=== PATIENT | female | born 1995 | race American Indian/Alaskan Native ===

== ENCOUNTER 2017-05-06 16:26 | Emergency (ER) | payer MEDICAID ==
--- NOTE | 2017-05-06 17:08 | OBHP ---
Datetime: 05/06/2017 17:01 IP Admit Plan: Discharge home Admit Comment, IP Provider: @ 35+ wks reprots decreased movements since around 2am. pt denies any lof, vb, ctx. Pt states she started feeling movements after being hooked u leonel monitor. 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: hx of STD PMH anemia (did not go t ohematolgy appointmetn because she says she lost her inrsance) PSH: deneis FHX: non tontribuotyr MEDS: pnv NKDA A/P P0 @ 35+ wks with maternal and reassuring well being -d/ chome -information for [facility] ginve - labor preucations ginve - kick count Pelvic Type - PN: Adequate Extremities - PN: Normal Abdomen - PN: Normal Back - PN: Normal Breast - PN: Normal Lungs - PN: Normal Heart - PN: Normal Thyroid - PN: Not Done Neurologic - PN: Normal HEENT - PN: Normal General - PN: Normal FHR - Baseline A Provider: 155 Vital Signs Provider: Reviewed; Within Normal Limits IP Chief Complaint: Decreased movement NICHD Variability Prov Fetus A: Moderate 6-25bpm NICHD Accel Fetus A IP Provider: 15X15 FHR Category Provider Fetus A: Category I NICHD Decel Fetus A IP Provider: None Dilatation, Provider: 0 Effacement, Provider: 0 Station, Provider: -3 Genitourinary Exam: Normal DTRs - PN: Normal
--- NOTE | 2017-05-06 17:09 | OBDCSUM ---
Datetime: 05/06/2017 17:07 Discharged to, Provider: Home Follow up at, Provider: clinic Disch Instr Activity: Normal activity Disch Instr Diet: Regular Discharge Instructions, Provider: Routine instructions given Discharge Time: 05/06/2017 17:07 Follow up in weeks, Provider: call tomorrow Disch Referrals: None Contraception discussed, Prov: No Discharge Comment, Provider: kick counts labor precautions can call [facility] for continuation of care Discharge Diagnosis Prov Other: decreased movements
[2017-05-06 22:15] VITALS: BP 125/71; PULSE 95; RESP 16; TEMP 98; O2SAT 98
== END 2017-05-06 18:13 | disposition home or self-care (01) ==
LOC: C.EROB 16:26
DX: O36.8130 Decreased fetal movements, third trimester, not applicable or unspecified (principal); Z3A.35 35 weeks gestation of pregnancy

== ENCOUNTER 2017-05-24 10:54 | Inpatient (IN) | payer MEDICAID ==
[2017-05-24 12:08] VITALS: BMI 41.8
[2017-05-24] MEDS ORDERED: Lactated Ringer's 1,000 ML IV SCH (12:15)
[2017-05-24] MEDS ORDERED: Penicillin G 5 Million Unit Vial IVPB ONE ×2 (13:00→17:40)
[2017-05-24 13:33] LABS: BASO % 0.4 % (0.0-2.0); EOS % 0.1 % (0.0-4.0); HEMATOCRIT 27.3 % (34.0-47.0); LYMPH # 1.4 K/uL (1.0-4.3); LYMPH % 10.5 % (20.0-40.0); MEAN CELL VOLUME 74.3 fL (81.0-99.0); MEAN CORPUSCULAR HEMOGLOBIN 23.7 pg (27.0-31.0); MEAN CORPUSCULAR HGB CONC 31.9 g/dL (33.0-37.0); MONO # 0.9 K/uL (0.0-0.8); MONO % 6.5 % (0.0-10.0); NRBC % 0.1 % (0.0-2.0); RED CELL DISTRIBUTION WIDTH 18.7 % (11.5-14.5); WHITE BLOOD COUNT 13.2 K/uL (4.8-10.8)
[2017-05-24 13:54] LABS: RBC URINE 1 /hpf (0-3); URINE BACTERIA FEW (<OCC); URINE BILIRUBIN NEGATIVE (NEGATIVE); URINE BLOOD NEGATIVE (NEGATIVE); URINE COLOR Yellow (YELLOW); URINE GLUCOSE (UA) NORMAL (Normal); URINE KETONE NEGATIVE (NEGATIVE); URINE LEUKOCYTE ESTERASE TRACE Leu/uL (Negative); URINE PROTEIN NEGATIVE (NEGATIVE); URINE UROBILINOGEN NORMAL mg/dL (0.2-1.0); WBC URINE 4 /hpf (0-5)
[2017-05-24 13:59] LABS: ALB/GLOB RATIO 1.1 (1.0-2.1); ALKALINE PHOSPHATASE 178 U/L (38-126); ALT/SGPT 24 U/L (9-52); AST/SGOT 20 U/L (14-36); BILIRUBIN,TOTAL 0.9 mg/dL (0.2-1.3); BLOOD UREA NITROGEN 8 mg/dL (7-17); CALCIUM 9.1 mg/dl (8.6-10.4); CARBON DIOXIDE 22 mmol/L (22-30); CHLORIDE 104 mmol/L (98-107); GFR AFRICAN-AMERICAN > 60; GLUCOSE,RANDOM 64 mg/dL (65-105); SODIUM 137 mmol/L (132-148); TOTAL PROTEIN 6.3 g/dL (6.3-8.3)
[2017-05-24] MEDS ORDERED: Penicillin G Potassium 2.5 MU in Dextrose 5% In Water 50 ML IV SCH (17:00)
[2017-05-24] MEDS ORDERED: Bupivacaine HCl 0.25% PF (10 ml) Inj ONE (19:13)
[2017-05-24] MEDS: Lactated Ringer's 1,000 ML IV SCH (20:04)
--- NOTE | 2017-05-24 23:24 | OBHP ---
Datetime: 05/24/2017 14:31 Admit Comment, IP Provider: 21 yo at 40w ANALI 05/24/2017 as per 5weeks 6days ultrasound with L MP of 08/16/16. Patient reports 5/10 contractions since 8am this morning that have been increasing in intensity at approximately 9am. Patient currently reports an 8/10 contraction. 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 Admission to Labor and delivery 2. Stable, Afebrile 3. Continous EFM and [place] 4. Admission orders 5. Expectant management 6. Plans discussed with attending Mari Sharp DO, PGY-1 Attending Attestation - Patinte seen , examinied and evaluated by me with Resident. records also reviewed by agusto lang. I agree with the above H_P, assessment and plan. - Patient's last visit due to loss of insurance. Patient states was told to a ve low iron and that she needed IV iron; not received any. GBS status unknown. - D/W enema and possible cervical ripening; then, possibly pitocin; ROM. Patient expressed an unde rstanding and agrees. No questions offered Assessment: 21 y.o. P0, 40 weeks, no care x 4 weeks. H/O (+) chlamydia 09/2016, NENA (-). G BS unknown. Category 1 tracing. As above. Plan: 1) Admit 2) NPO 3) SSE 4) Admission labs, including RPR, UDS 5) IVFs 6) Continuous EFM 7) Start penicillin, when active 8) Close observatoin 9) Anticipate vaginal delivery FHR - Baseline A Provider: 150 Contraction Comments Provider: irregular Comments, ACOG Physical Exam: Gen: NAD, AAOX3 Cardio: RRR, normal S1, S2 Pulm: CTA bilaterally Abd: Soft, gravid, fundal height at 39cm Ext: No edema, no clubbing, no cyanosis EFM: 150, moderate variabilty, + accels Gestation - Est Wks by US: 40.0 NICHD Variability Prov Fetus A: Moderate 6-25bpm NICHD Accel Fetus A IP Provider: 15X15 NICHD Decel Fetus A IP Provider: None Dilatation, Provider: 1 Effacement, Provider: 0 Station, Provider: -3
--- NOTE | 2017-05-24 23:56 | OBPN ---
Datetime: 05/24/2017 20:16 IP Procedures Other: Cervical ripening IP Progress Impression Other: Insufficient care IP Progress Plan: Cervical Ripening Contraction Comments Provider: irregular FHR - Baseline A Provider: 140 Gestation - Est Wks by US: 40.0 IP Progress Note Comment: Patient reports abdominal pain is the same as on admission. (+) AFM; prashant s LOF, VB Cervical exam as above. Cervidil placed in posterior vaginal vault. Assessment: 21 y.o. P0, 40 weeks, insuficient care; IOL/cervical ripening. GBS unknonwn. Category 1 tracing. Clinically stable. Plan: 1) As above. 2) penicillin when active 3) Anticipate vaginal delivery NICHD Accel Fetus A IP Provider: 15X15 FHR Category Provider Fetus A: Category I NICHD Variability Prov Fetus A: Moderate 6-25bpm Dilatation, Provider: 1 Effacement, Provider: 20 Station, Provider: -3 NICHD Decel Fetus A IP Provider: None Datetime: 05/06/2017 17:01 Vital Signs Provider: Reviewed; Within Normal Limits
[2017-05-25 08:16] LABS: BASO % 0.3 % (0.0-2.0); EOS % 0.1 % (0.0-4.0); HEMATOCRIT 23.3 % (34.0-47.0); LYMPH % 8.6 % (20.0-40.0); MEAN CORPUSCULAR HEMOGLOBIN 24.3 pg (27.0-31.0); MEAN CORPUSCULAR HGB CONC 31.8 g/dL (33.0-37.0); MEAN PLATELET VOLUME 7.9 fL (7.2-11.7); MONO # 0.7 K/uL (0.0-0.8); MONO % 6.6 % (0.0-10.0); PLATELET COUNT 221 K/uL (130-400); RED CELL DISTRIBUTION WIDTH 18.2 % (11.5-14.5); WHITE BLOOD COUNT 11.3 K/uL (4.8-10.8)
[2017-05-25 08:36] LABS: MEAN CELL VOLUME 76.5 fL (81.0-99.0)
[2017-05-25 09:41] LABS: NEUTROPHIL 86 % (50-75); TOTAL CELLS COUNTED 100
--- NOTE | 2017-05-25 11:44 | OBPN ---
Datetime: 05/25/2017 11:30 IP Progress Impression: Arrest of dilatation/descent IP Progress Plan: Deliver- Section Contraction Comments Provider: every 2-3min IP Progress Note Comment: S-patient reports that she is uncomfortable with contractions O-VSS Afebrile FHT cat1 [place] ctxq3-5min sve 1/thick and high A/P Patient admitted at 40.1 wga.s/p cervidil.rmeoved due to nrfht.fht reactive no.wpatient with r egular ctx after removal of cervidil but no change in cervical exam.Patient on 2units of PRBCS.Discus sed findings with patient.reviewed arrest of dilation.Patient desires to proceed with csection.Risks and benefits discussed.Informed consent obtained and signed -will proceed with csection when or ready -anesthesia informed Vital Signs Provider: Reviewed; Within Normal Limits FHR Category Provider Fetus A: Category I Dilatation, Provider: 1 Effacement, Provider: thick Station, Provider: high
[2017-05-25] MEDS ORDERED: cefOXitin IV 2 gm in Dextrose 2 GM/50 ML BAG IVPB ONE (11:56)
[2017-05-25] MEDS ORDERED: Lactated Ringer's 1,000 ML IV SCH (12:00)
[2017-05-25] MEDS ORDERED: Oxytocin 20 units in LR 2,000 ML IV ONE (12:03)
[2017-05-25] MEDS ORDERED: Sodium Citrate/Citric Acid 15 ml Sol PO ONE (12:15)
[2017-05-25] MEDS ORDERED: Morphine 1 mg/ml preservative-free Inj(Duramorph) ONE (12:17)
[2017-05-25] MEDS ORDERED: ePHEDrine 50 mg/ml Inj ONE (12:18)
[2017-05-25] MEDS ORDERED: Phenylephrine 10 mg/ml Inj ONE (12:18)
[2017-05-25] MEDS: Lactated Ringer's 1,000 ML IV SCH (12:36)
[2017-05-25] MEDS ORDERED: Oxytocin 10 Units/ml Inj ONE (13:33)
[2017-05-25] MEDS ORDERED: DiphenhydrAMINE 50 mg/ml Inj IVP PRN (14:40)
--- NOTE | 2017-05-25 19:57 | OBDS ---
DELIVERY PERSONNEL Delivery Doctor: Marisabel Manrique MD [employer] Supervisor: Vanessa Colon RN Anesthesiologist: Brigitte Aldana MD MATERNAL INFORMATION Delivery Anesthesia: Spinal Medications in Delivery: Pitocin 40 u to IV BAG,mETHERGINE 1 AMP Estimated Blood Loss (ml): 900 Placenta Cultured: Yes (Annotations: Data stored by N on behalf of user) Maternal Complications: None Other Maternal Complications: Light meconium stained amniotic fluid RN Comments: Primary LTC/S to a live girl,dried,suctioned m/n,vigorous. attended ba by,9/9 ,stable .CORD pH ORDERED _ SENT Provider Comments: primary csection done for arrest of dilationa nd descent LABOR SUMMARY EDC: 05/24/2017 00:00 No. Babies in Womb: 1 Attempted: No Labor Anesthesia: Intrathecal LABOR INFORMATION Reason for Induction: Not Applicable Onset of Labor: 05/23/2017 08:00 Cervical Ripening Agents: cervidil removed Group B Beta Strep: Not Done Antibiotics # of Doses: 1 Antibiotics Time of Last Dose: 0300 Steroids Given: None Reason Steroids Not Administered: Not Applicable MEMBRANES Membranes Rupture Method: Artificial Rupture of Membranes: 05/25/2017 13:25 Length of Rupture (hrs): 0.05 Amniotic Fluid Color: Light Meconium Amniotic Fluid Amount: Moderate Amniotic Fluid Odor: None STAGES OF LABOR Stage 3 hrs: 0 Stage 3 min: 1 Total Time in Labor hrs: 53 Total Time in Labor min: 29 CSECTION DELIVERY Primary Indication: Failure of Descent CSection Urgency: Non Elective CSection Incidence: Primary Labor: No Labor Elective: Nonelective CSection Incision: Lower Uterine Transverse BABY A INFORMATION Infant Delivery Date/Time: 05/25/2017 13:28 Method of Delivery: Born in Route : No : N/A Forceps: N/A Vacuum Extraction: N/A Shoulder Dystocia : No SHOULDER DYSTOCIA BABY A Delivery Date/Time: 05/25/2017 13:28 PRESENTATION/POSITION BABY A Presentation: Cephalic Cephalic Presentation: Vertex Vertex Position: Left Occipital Anterior Breech Presentation: N/A PLACENTA INFORMATION BABY A Placenta Delivery Time : 05/25/2017 13:29 Placenta Method of Delivery: Manual Removal Placenta Status: Delivered SCORES BABY A Heart Rate 1 min: >100 bpm Resp Effort 1 min: Good Cry Reflex Irritability 1 min: Cough or Sneeze or Pulls Away Muscle Tone 1 min: Active Motion Color 1 min: Body [place], Extremities Blue SCORE 1 MIN: 9 Heart Rate 5 min: >100 bpm Resp Effort 5 min: Good Cry Reflex Irritability 5 min: Cough or Sneeze or Pulls Away Muscle Tone 5 min: Active Motion Color 5 min: Body [place], Extremities Blue SCORE 5 MIN: 9 INFANT INFORMATION BABY A Gestational Age at Delivery: 40.1 Gestational Status: Term Infant Outcome : Liveborn Condition : Stable Sex: Female IDENTIFICATION/MEDS BABY A ID Band Number: [id number] ID Band Location: Left Leg; Left Arm Sensor Number: [id number] Sensor Location : Left Leg; Left Arm Vitamin K Given : Not Given Erythromycin Given: Not Given WEIGHT/LENGTH BABY A Birthweight (gms): 3355 Infant Weight (lb): 7 Weight (oz): 6 Length Inches: 19.00 Infant Length cms: 48.3 CORD INFORMATION BABY A No. Cord Vessels: 3 Nuchal Cord : Around Neck x1, Loose Cord Blood Taken: Yes Suction: Mouth; Nose
[2017-05-26] MEDS: Oxycodone/Acetaminophen 5/325 mg Tab PO PRN ×4 (01:09→22:21)
[2017-05-26 08:57] LABS: BASO % 0.2 % (0.0-2.0); EOS % 0.1 % (0.0-4.0); HEMATOCRIT 26.1 % (34.0-47.0); LYMPH # 1.6 K/uL (1.0-4.3); LYMPH % 9.6 % (20.0-40.0); MEAN CELL VOLUME 76.5 fL (81.0-99.0); MEAN CORPUSCULAR HEMOGLOBIN 24.7 pg (27.0-31.0); MEAN CORPUSCULAR HGB CONC 32.3 g/dL (33.0-37.0); MEAN PLATELET VOLUME 8.2 fL (7.2-11.7); MONO # 1.4 K/uL (0.0-0.8); MONO % 8.5 % (0.0-10.0); NRBC % 0.1 % (0.0-2.0); PLATELET COUNT 220 K/uL (130-400); RED CELL DISTRIBUTION WIDTH 18.8 % (11.5-14.5); WHITE BLOOD COUNT 16.8 K/uL (4.8-10.8)
[2017-05-26] MEDS: Simethicone 80 mg Chewtab PO SCH ×5 (09:37→21:32)
[2017-05-26 11:56] LABS: NEUTROPHIL 78 % (50-75); TOTAL CELLS COUNTED 100
--- NOTE | 2017-05-26 15:55 | OBPPN ---
Datetime: 05/26/2017 08:32 PP Pain Prov: Within normal limits PP Nausea Prov: Denies PP Flatus Prov: No PP BM Prov: No PP Impression Prov: Normal progression PP Plan Prov: Continue present management PP Progress Note Prov: Patient seen and examined at bedside. Per nursing no acute events overnight. Patient is doing well, pain is controlled. OOB to chair. Lochia is mild. Rodas out this am. Has not v oided yet. Offers no complaints at this time. Breast and bottle feeding. Denies passing flatus, BM, h eadaches, dizziness, cp, palpitations, sob. VS: BP 97/64 HR 93 Temp 99.6 I/O: 2250/1000 Gen: AAOx3 CV: RRR Lungs: CTA B/L Abd: soft, appropriately tender, fundus firm at umbilicus, dressing c/d/i, abd binder in place Ext: no clubbing, cyanosis, edema; no calf tenderness Labs: 13.2>8.7/27.3<313 11.3>7.4/23.3<221 F/U am CBC A positive Rubella immune A/P: 21 yo at 40w1d s/p PLTCD 2/2 failure of descent POD#1 1. Stable, afebrile 2. F/U am CBC 3. Pain control - percocet and motrin prn 4. Rodas out, f/u voiding trial 5. Anemia - s/p 2 unit PRBCs pre operatively, continue ferrous sulfate and colace 6. Encourage ambulation and hydration; encourage ISS use 7. Advance diet as tolerate 8. Continue routine post care 9. Plan d/w attending Erica Rivera DO PGY-1 Attending note.Agrees with plan Vital Signs Provider PP: Reviewed; Within Normal Limits
--- NOTE | 2017-05-26 20:14 | OP ---
PROCEDURE DATE: 05/25/2017 PREOPERATIVE DIAGNOSIS: Arrest of dilation and arrest of descent. POSTOPERATIVE DIAGNOSIS: Arrest of dilation and arrest of descent. PROCEDURE PERFORMED: Primary lower transverse section. SURGEON: Herb Manrique MD WATERWORKS EMPLOYEE: Kurt Taylor MD and Dr. Erica Muñoz, G-1 Please note that the procedure required 2 surgical assistants to assist with entering to the abdominal cavity, to assist with the delivery of the , and also to assist with the dissection as well as closure of the abdominal wall. The surgical assistants were present and scrubbed for the entire duration of the procedure. TYPE OF ANESTHESIA: Spinal. ANESTHESIA ADMINISTERED BY: Dr. Aldana. COMPLICATIONS: None. ESTIMATED BLOOD LOSS: 900 mL. FINDINGS: A viable female in vertex presentation with Apgars of 9 at one minute and 9 at five minutes of life. Normal-appearing uterus, tubes, and ovaries. DESCRIPTION OF PROCEDURE: After informed consent was obtained, the patient was taken to the operating room where spinal anesthesia was administered by the anesthesia team. She was thereafter placed in dorsal supine position with a leftward tilt. She was then prepped and draped in the usual sterile manner. The Rodas catheter was confirmed to be draining clear urine. After it was confirmed that the patient had adequate anesthesia, a Pfannenstiel skin incision was made and this was carried down to the underlying layer of the fascia with the help of the Bovie. The fascia was then incised in the midline and incision extended laterally with the help of Bovie as well. The superior aspect of fascial incision was then grasped with Fernando clamp to elevate it and the underlying rectus muscle was dissected off. Attention was then turned to the inferior aspect of the fascial incision which in a similar fashion was grasped with Fernando clamp to elevate it and the underlying rectus muscle was dissected off. The rectus muscle was in the midline. The peritoneum was picked up with hemostat and clamps and entered sharply with Metzenbaum scissors. The peritoneal incision was extended superiorly and inferiorly with good visualization of the bladder. The bladder blade was then inserted and the was identified. A transverse incision was made over the vesicouterine peritoneum with the help of Metzenbaum scissors and this was extended laterally as well and the bladder flap was created sharply. The bladder blade was then inserted and the lower uterine segment identified. A transverse incision was made over the lower uterine segment and this was extended bluntly and then the membranes were ruptured and the 's head was delivered. Nuchal x1 around neck was found and this was reduced and the body and the shoulders were delivered. The nose and the mouth were suctioned. The cord was then clamped and cut. The infant was handed over to the waiting candy vendor. The segment of cord was taken for cord blood. The cord blood was collected and the placenta was then manually removed. The uterus was exteriorized and cleared of all clots and debris. The uterine incision was repaired with 0 Polysorb in a running locked fashion. A second layer of same suture was used to imbricate the first layer and also to obtain hemostasis. Adequate hemostasis was noted from the uterine incision at the repair site. At this point, the uterus was returned to the patient's abdomen and the gutters were cleaned and suctioned. The hysterography was inspected for hemostasis and bleeding was noted from the right edge and this was suture ligated with 2-0 Monocryl. Additional sutures of 3-0 Monocryl with [id number] stitches were placed to ensure hemostasis. At this point, it was confirmed that the uterus incision had adequate hemostasis. Surgicel was placed over the uterine incision repair site. The peritoneum was closed with 2-0 Polysorb in a running fashion. The muscle layer was reapproximated with 2-0 Polysorb in a continuous manner. The fascia was closed with 0 Vicryl in running fashion. The subcutaneous tissue was reapproximated with 2-0 Polysorb in a continuous manner, and the skin was then closed with venancio. The sponge, lap, needle and instrument count was correct x3 at the end of the procedure. The patient tolerated the procedure well. The patient was thereafter cleaned and taken to the recovery room in stable condition. Herb Manrique MD
[2017-05-27] MEDS: Simethicone 80 mg Chewtab PO SCH ×3 (09:50→17:16)
[2017-05-27] MEDS ORDERED: Magnesium Hydroxide Susp 30 ml UD PO ONE (11:51)
--- NOTE | 2017-05-27 15:21 | OBPPN ---
Datetime: 05/27/2017 08:43 PP Abdomen/Uterus Prov: Normal PP Lochia Prov: Normal PP Extremities Prov: Normal PP Comments Phys Exam Prov: fudus below umblicus ext no edema PP Progress Note Prov: Patient seen and examined at bedside. As per nursing no acute events overnigh t. Patient is doing well, pain is controlled. Patient reports ambulation yesterday without difficulti es. Patient is tolerating diet and ambulating. Patient has been voiding without difficulties since t he kurtz was discontinued yesterday am. Patient report mild lochia and denies passing flatus, BM, hea daches, dizziness, cp, palpitations, sob and calf tenderness. Patient is breast and bottle feeding. P atient has no complaints at this time. Vital Signs: BP: 122/80 HR 90 Temp 97.8 Gen: AAOx3, NAD Cardio: RRR, Normal S1, S2 Pulm: CTA bilaterally Abd: soft, appropriately tender, fundus firm at umbilicus, dressing c/d/i, abd binder in place Ext: no clubbing, cyanosis, edema; no calf tenderness Labs: 13.2>8.7/27.3<313 11.3>7.4/23.3<221, 16.8>8.4/26.1<220. f/u AM CBC A positive Rubella immune A/P: 21 yo at 40w1d s/p primary lower transverse uterine 2/2 failure of descent POD #2 1. Stable, afebrile 2. F/U am CBC 3. Pain control - percocet, motrin and tylenol prn 4. Anemia - s/p 2 unit PRBCs pre operatively, continue ferrous sulfate and colace 5. Encourage ambulation and hydration; encourage Incentive spirometer use 6. Continue routine post care 7. Plan to d/c tomorrow 8. Plan d/w attending Mari Sharp DO, PGY-1 attending note agrees with above
[2017-05-28] MEDS: Oxycodone/Acetaminophen 5/325 mg Tab PO PRN ×2 (02:28→10:13)
[2017-05-28 08:01] VITALS: BP 124/84; PULSE 64; RESP 18; TEMP 97.6; O2SAT 99
[2017-05-28] MEDS: Simethicone 80 mg Chewtab PO SCH (09:16)
--- NOTE | 2017-05-28 10:14 | OBDCSUM ---
Datetime: 05/28/2017 08:31 Discharged to, Provider: Home Follow up at, Provider: [facility] Instr Activity: Normal activity; May be up to bathroom; May be up for meals; May Shower Disch Instr Diet: Regular Discharge Instructions, Provider: Routine instructions given Discharge Diagnosis, Provider: Term Delivered Discharge Time: 05/28/2017 11:30 Follow up in weeks, Provider: 06-01-17 Disch Referrals: None Contraception discussed, Prov: Yes Disch Activity Restrictions: No lifting; No sexual activity; Nothing in vagina - [place], tampon s, douche Discharge Diagnosis Prov Other: Anemia Status post [place] section Contraception counseling Contraception after Delivery: IUD Datetime: 05/06/2017 17:07 Discharge Time: 05/06/2017 11:30 Disch Activity Restrictions: No lifting; Minimize stair-climbing; No sexual activity; Nothing in vag santos - [place], tampons, douche
--- NOTE | 2017-05-28 10:14 | OBPPN ---
Datetime: 05/28/2017 08:22 PP Pain Prov: Within normal limits PP Nausea Prov: Denies PP Flatus Prov: Yes PP BM Prov: Yes PP Impression Prov: Normal progression PP Plan Prov: Continue present management; Discharge PP Progress Note Prov: Patient seen and examined at bedside. Per nursing no acute events overnight. Patient is doing well, pain is controlled. Lochia mild. Patient is ambulating and tolerating diet. Pa ssing flatus and having BM. Urinating without difficulty. Denies headaches, dizziness, cp, palpitatio ns, sob, urinary symptoms. Breast and bottle feeding. VS: BP 100/61 HR 103 Temp 97.7 Gen: AAOx3 CV: RRR Lungs: CTA B/L Abd: Soft, appropriately tender, fundus firm 2 fingerbreath below umbilicus, incision c/d/i with s taples Ext: +1 LE edema B/L; no calf tenderness Labs: 13.2>8.7/27.3<313 11.3>7.4/23.3<221 16.8>8.4/26.1<220 A positive Rubella immune A/P: 21 yo at 40.1 weeks s/p PLTCD 2/2 failure of descent POD#3 1. Stable, afebrile 2. Pain control - percocet and motrin prn 3. Hx of anemia - s/p 2 units PRBCs preoperatively - hgb stable, will d/c on Rosy-sequels PO BID 4. Encourage ambulation and hydration; Encourage breast feeding 5. Discussed methods of contraception- patient interested in Mirena 6. D/C home today - follow up w clinic in 1 week for incision check, pelvic rest x 6 weeks, percoc et and motrin prn 7. Plan d/w attending Erica Rivera DO PGY-1 Attending Attestation - patient seen, examined and evaluated with resident. I agree with the progress note, assessment a nd plan as documented above. Vital Signs Provider PP: Reviewed
== END 2017-05-28 12:45 | disposition home or self-care (01) | DRG 370 ==
LOC: C.EROB 10:54 → C.4D 12:08 → C.4M 05-25 22:00
PROVIDERS: ADMIT Obstetrics & Gynecology; ATTEND Obstetrics & Gynecology
PROC: 10D00Z1 Extraction of Products of Conception, Low, Open Approach (ICD-10-PCS; principal; 2017-05-25)
DX: O32.4XX0 Maternal care for high head at term, not applicable or unspecified (principal); O62.1 Secondary uterine inertia; O99.02 Anemia complicating childbirth; D64.9 Anemia, unspecified; J45.909 Unspecified asthma, uncomplicated; O69.81X0 Labor and delivery complicated by cord around neck, without compression, not applicable or unspecified; O77.0 Labor and delivery complicated by meconium in amniotic fluid; O99.52 Diseases of the respiratory system complicating childbirth; Z3A.40 40 weeks gestation of pregnancy; Z37.0 Single live birth

== ENCOUNTER 2017-06-06 20:41 | Emergency (ER) | payer MEDICAID ==
[2017-06-06 20:41] VITALS: BMI 41.8
[2017-06-06 20:49] VITALS: BP 121/84; PULSE 97; RESP 20; TEMP 98.1; O2SAT 98
[2017-06-06] MEDS ORDERED: Bacitracin 500 Units/gm Oint Foilpak UD TOP ONE (21:43)
[2017-06-06] MEDS ORDERED: Bacitracin 500 Units/gm Oint Foilpak UD ONE (21:54)
--- NOTE | 2017-06-06 21:54 | C.PDOC ---
History Of Present Illness 21 year old female, who is status post delivery, presents to the ED for evaluation of the wound site, which she suspects has opened up. Patient notes that she had her sutures removed around 1 week ago. Today, patient felt like the wound site was opening up and presents to the ED for further evaluation. Patient denies fever, chills, discharge, recent heavy lifting, or any complications during delivery. Time Seen by Provider: 06/06/17 21:15 Chief Complaint (Nursing): Abnormal Skin Integrity History Per: Patient History/Exam Limitations: no limitations Onset/Duration Of Symptoms: Hrs Current Symptoms Are (Timing): Still Present Quality Of Symptoms: denies: Painful, Itching, Swollen, Draining Additional History Per: Patient Past Medical History Reviewed: Historical Data, Nursing Documentation, Vital Signs Vital Signs: Last Vital Signs Temp 98.1 F 06/06/17 20:46 Pulse 97 H 06/06/17 20:46 Resp 20 06/06/17 20:46 BP 121/84 06/06/17 20:46 Pulse Ox 98 06/06/17 22:09 - Medical History PMH: Asthma Denies: Depression, Diabetes, HTN Surgical History: Tonsillectomy - [facility] Procedures EXTRACTION OF POC, LOW CERVICAL, OPEN APPROACH (05/24/17) Family History: States: Unknown Family Hx - Social History Hx Alcohol Use: No Hx Substance Use: No - Immunization History Hx Tetanus Toxoid Vaccination: No Hx Influenza Vaccination: No Hx Pneumococcal Vaccination: No Review Of Systems Constitutional: Negative for: Fever, Chills Skin: Positive for: Other (healing wound to abdomen) Physical Exam - Physical Exam Appears: Non-toxic, No Acute Distress Skin: Normal Color, Warm, Dry Head: Atraumatic, Normacephalic Eye(s): bilateral: Normal Inspection, PERRL, EOMI Oral Mucosa: Moist Neck: Normal ROM, Supple Chest: No Symmetrical, No Deformity Cardiovascular: Rhythm Regular, No Friction Rub, No Murmur Respiratory: Normal Breath Sounds, No Rales, No Rhonchi, No Wheezing Gastrointestinal/Abdominal: Soft, No Tenderness, No Guarding, No Rebound, Other (well healed surgical wound. No erythema, tenderness, or drainage) Extremity: Normal ROM, No Tenderness, No Swelling Neurological/Psych: Oriented x3, Normal Speech, Normal Cognition, Normal Motor, Normal Sensation Gait: Steady ED Course And Treatment O2 Sat by Pulse Oximetry: 98 (on RA) Pulse Ox Interpretation: Normal Medical Decision Making Medical Decision Making: Progress: Bacitracin TOP applied to affected area. Disposition - Disposition Referrals: [facility] [Outside] Disposition: HOME/ ROUTINE Disposition Time: 22:07 Condition: GOOD Additional Instructions: Wash the ran area twice a day and apply bacitracin. Follow up with the OBGYN as scheduled. Prescriptions: Bacitracin Ointment [Bacitracin] 30 gm TOP BID #1 tube Instructions: Acute Wound Care (ED) Forms: [facility] (Kiswahili) - Clinical Impression Clinical Impression: Visit for wound check - PA / TAX COMPLIANCE AGENT / Resident Statement MD/DO has reviewed & agrees with the documentation as recorded. - Scribe Statement The provider has reviewed the documentation as recorded by the Scribe (Jessenia Harris) All medical record entries made by the Scribe were at my direction and personally dictated by me. I have reviewed the chart and agree that the record accurately reflects my personal performance of the history, physical exam, medical decision making, and the department course for this patient. I have also personally directed, reviewed, and agree with the discharge instructions and disposition.
== END 2017-06-06 22:11 | disposition home or self-care (01) ==
LOC: C.ER 20:41
DX: Z48.01 Encounter for change or removal of surgical wound dressing (principal)